=== PATIENT | male | born 1975 | race Caucasian/White ===

== ENCOUNTER 2023-06-18 08:39 | Outpatient (CLI) | payer OTHER, SELFPAY | END 2023-06-18 08:40 | disposition home or self-care (01) | LOC: NFLDREF 06-22 15:14 | PROVIDERS: PCP Family Medicine; Referring Provider Family Medicine; Visit Provider Family Medicine | DX: Z00.00 Encounter for general adult medical examination without abnormal findings (principal); Z13.6 Encounter for screening for cardiovascular disorders | CPT/HCPCS: 80048; 80061 ==